=== PATIENT | male | born 1995 | race Hispanic/Latino ===

== ENCOUNTER 2022-07-15 05:16 | Emergency (ER) | payer SELFPAY ==
--- NOTE | ~2022-07-15 | XR_ITS ---
EXAMINATION: XR chest 2V DATE: 07/15/2022 06:32 INDICATION: Shortness of breath. TECHNIQUE: Frontal and lateral views of the chest were obtained. COMPARISON: None. FINDINGS: The chest demonstrates clear lungs without pneumonia, pleural effusion, or pneumothorax. Th e heart size is normal. IMPRESSION: 1. No acute cardiopulmonary disease. Reviewed, dictated and finalized at location A.
[2022-07-15 05:23] VITALS: BP 145/79; PULSE 78; RESP 18; TEMP 36.1; O2SAT 99
[2022-07-15 05:25] VITALS: BP 148/85; PULSE 77; RESP 17; O2SAT 97
[2022-07-15 05:31] VITALS: BP 133/119; PULSE 75; RESP 15; O2SAT 97
[2022-07-15 05:35] VITALS: PULSE 93; O2SAT 96
--- NOTE | 2022-07-15 05:44 | ED.GENADULT ---
HPI - General Adult General Chief complaint: Shortness of Breath/Dyspnea Stated complaint: shortness of breath Time Seen by Provider: 07/15/22 05:20 History of Present Illness HPI narrative: 27-year-old male presented to ED for evaluation of shortness of breath that started approximately 2 hours prior to arrival. Patient states he was at rest when the shortness of breath started. Patient denies any associated chest pain. Patient is a smoker. Patient denies any prior diagnosis of asthma but states he has used albuterol inhalers previously. Patient denies any prior history of PE or DVT. Patient denies any prior cardiac history. At time of evaluation the patient appears to not be in any distress and patient is saturating at 99-96 Related Data Allergies Allergy/AdvReac Type Severity Reaction Status Date / Time Sulfa (Sulfonamide Allergy Anaphylaxis Verified 07/15/22 05:35 Antibiotics) Review of Systems Review of Systems: All systems reviewed & are unremarkable except as noted in HPI and below Exam Narrative: APPEARANCE: Well appearing, no pain, no distress, well-nourished. HEAD: normocephalic, atraumatic. EYES: PERRLA/EOMI, conjunctivae clear. NOSE: Normal no drainage NECK: Supple. No adenopathy, no masses. RESPIRATORY: Airway patent, respirations nonlabored. Clear to auscultation bilaterally, no rales, rhonchi, wheezing. CARDIOVASCULAR: Regular rate and rhythm without murmurs rubs or gallops. ABDOMINAL: Soft, nontender, nondistended, normal bowel sounds MUSCULOSKELETAL: Moves all extremities. Strength/ROM intact, No edema, No calf tenderness. NEURO: Alert. Cranial nerves II through XII intact. Grossly intact SKIN: Warm, dry. Normal Color Course Course Emergency Course: 27-year-old male presenting to the ED for evaluation of shortness of breath. Patient was treated with an albuterol nebulizer. Chest x-ray was ordered. Patient did feel improved after treatment with the albuterol inhaler. Chest x-ray showed no acute focal abnormality. Patient was encouraged to quit smoking. Patient was updated on results of his work-up. Patient was encouraged to have close follow-up with a primary care physician. Vital Signs Vital signs: Vital Signs Temperature 97.0 F L 07/15/22 05:23 Pulse Rate 78 07/15/22 05:23 Respiratory Rate 18 07/15/22 05:23 Blood Pressure 145/79 H 07/15/22 05:23 Pulse Oximetry 99 07/15/22 05:23 Oxygen Delivery Room Air 07/15/22 05:23 Temperature 97.0 F L 07/15/22 05:23 Pulse Rate 71 07/15/22 05:55 Respiratory Rate 17 07/15/22 05:55 Blood Pressure 140/98 H 07/15/22 05:46 Pulse Oximetry 95 07/15/22 05:46 Oxygen Delivery Room Air 07/15/22 05:35 Medical Decision Making Differential Diagnosis Differential Diagnosis: Pneumonia, asthma, bronchitis Vital Signs Vital Signs: Vital Signs Temperature 97.0 F L 07/15/22 05:23 Pulse Rate 78 07/15/22 05:23 Respiratory Rate 18 07/15/22 05:23 Blood Pressure 145/79 H 07/15/22 05:23 Pulse Oximetry 99 07/15/22 05:23 Oxygen Delivery Room Air 07/15/22 05:23 Temperature 97.0 F L 07/15/22 05:23 Pulse Rate 71 07/15/22 05:55 Respiratory Rate 17 07/15/22 05:55 Blood Pressure 140/98 H 07/15/22 05:46 Pulse Oximetry 95 07/15/22 05:46 Oxygen Delivery Room Air 07/15/22 05:35 Imaging Data My impression: Chest x-ray: No acute cardiopulmonary abnormality Discharge Plan Discharge Clinical Impression: Acute dyspnea Patient Disposition: Home, Self-Care Condition: Stable Instructions: Antibiotic Form, Asthma (ED), Acute Bronchitis (ED) Additional Instructions: Albuterol inhaler for shortness of breath. Quit smoking. Have close up with your primary care physician. If you have any worsening symptoms then please call or return to the emergency department. Prescriptions: New albuterol sulfate 90 mcg/actuation HFA aerosol inhaler 1 puff inhalation Q6-8H PRN ([place]
[2022-07-15 05:46] VITALS: BP 140/98; PULSE 75; RESP 22; O2SAT 95
[2022-07-15] MEDS: LEVALBUTEROL NEB 1.25 MG/3 ML 2.5 MG INHALATION (05:53)
[2022-07-15 05:55] VITALS: PULSE 71; RESP 17
== END 2022-07-15 07:00 | disposition home or self-care (01) ==
PROVIDERS: Emergency Provider Emergency Medicine
DX: R06.00 Dyspnea, unspecified (principal)
CPT/HCPCS: 71046; 94640; 99283